=== PATIENT | male | born 2000 | race Caucasian/White ===

== ENCOUNTER 2022-06-12 18:50 | Emergency (ER) | payer BC, SELFPAY ==
[2022-06-12 18:51] VITALS: PULSE 74
[2022-06-12 18:56] VITALS: BP 118/72; PULSE 72; RESP 18; TEMP 36.7; O2SAT 99; BMI 22.4
--- NOTE | 2022-06-12 19:34 | CRLHL7_ITS ---
For Patients: As a result of the Century Cures Act, medical imaging exams and procedure reports are released immediately into your electronic medical record. You may view this report before your referring provider. If you have questions, please contact your health care provider. Indication: Injury and pain. Technique: Left knee 3 views Comparison: None Findings: Bones: Alignment is normal. No acute displaced fracture. Sclerotic focus overlying the medial tibial plateau with narrow zone of transition, statistically a bone island. Joint spaces: No joint effusion. Joint spaces are well maintained. No degenerative changes. Soft tissues: Unremarkable. Impression: No sign of acute injury. Dictated by Del Gu MD @ 06/12/2022 7:59:17 PM (Electronically Signed)
--- NOTE | 2022-06-12 19:34 | ED.LOWEXIN ---
HPI - Extremity Injury (Lower) General Chief Complaint: Extremity Pain/Injury, Lower Stated Complaint: [place] the top of his knee slide to the bottom Time Seen by Provider: 06/12/22 19:03 History of Present Illness HPI Narrative: This 21-year-old male comes in with an injury to his left knee that occurred about 45 minutes prior to arrival. He states that he was running straight forward when he felt like his knee buckled or went down. Since then he has not put any weight on his leg. He arrives here with no sign of deformity in his knee. He is reporting pain in the posterior aspect of his left knee. He does not report any other injury and has not had a problem with his knees in the past. Related Data Home Medications Medication Instructions Recorded Confirmed No Known Home Medications 06/12/22 06/12/22 Previous Rx's Medication Instructions Recorded Crutches- Adult #1 ea 06/12/22 ketorolac 10 mg tablet 10 mg PO Q8H 5 days #15 tabs 06/12/22 Allergies Allergy/AdvReac Type Severity Reaction Status Date / Time amoxicillin Allergy Mild Hives Verified 06/12/22 18:59 Review of Systems Status of ROS: Reports: 10 or more systems reviewed and unremarkable except as noted in History and below Narrative: Constitutional: No fevers, no weight gain or loss. Eyes: No discharge. No vision changes. HENT: No congestion, no sore throat, no ear pain. Cardiovascular: No chest pain, no palpitations. Respiratory: No shortness of breath, no wheezes, no cough. Gastrointestinal: No abdominal pain, no vomiting, no diarrhea. Genitourinary: No dysuria, no hematuria. Musculoskeletal: Left knee pain as described above. Skin: No rashes, no pruritis. Neurological: No dizziness, weakness, sensory change, speech change. Endo/Heme/Allergies: No bruising or bleeding. No polydipsia. Pysch: no suicidality, no anxiety, no insomnia. All other systems reviewed and are negative. PFS PFS Medical History (Updated 06/12/22 @ 19:53 by Rufus Marte MD) Anxiety ?F41.9 - Anxiety disorder, unspecified (ICD-10) Surgical History (Updated 06/12/22 @ 19:15 by Alejandro Tran RN) No significant past surgical history Social History Smoking Status: Never smoker Do you use any of these nicotine containing products: Vaping Products Second hand tobacco smoke exposure: No How often do you have a drink containing alcohol: never How often do you have six or more drinks on one occasion: Never AUDIT-C Alcohol total score: 0 Non-prescribed substance use: denies use Exam Narrative: Exam Narrative: Constitutional: Well-developed, well-nourished, no acute distress. HEENT: Normocephalic, atraumatic. Neck: Normal range of motion. Nontender. Supple. Heart: Intact distal pulses. Lungs: No chest discomfort. No wheezes, rhonchi, or rales. Abdomen: Nontender. Back: Normal range of motion. Extremities: Left knee has normal appearance without sign of deformity or swelling. There is no pain when mobilizing the patella in a fully extended relaxed position. He does have pain when flexing his leg and rotating his ankle. The pain is in his flexor mechanism tendons of the hamstring. There is no palpable step-off of these tendons. There is no sign of bruising. Jose's test is negative. There is no ligament instability when assessing under varus and valgus stress. Skin: Intact. No rash. Warm. No erythema or pallor. Neurologic: No altered sensation. No weakness. Alert and oriented. Psychiatric: No suicidality. No anxiety or depression. No insomnia. Nursing notes and vitals signs are reviewed. Const: Vital Signs, click to edit/add: Vital Signs - 24 hr 06/12/22 18:56 06/12/22 18:51 Temperature 98.0 F Pulse Rate [Left D orsalis Pedis] 74 Pulse Rate [Right Pulse Oximeter] 72 Respiratory Rate 18 Blood Pressure [Ri ght Upper Arm] 118/72 Pulse Oximetry 99 Oxygen Delivery Me thod Room Air Course Vital Signs Vital signs: Initial Vital Signs Pulse Rate 74 06/12/22 18:51 Vital Signs Pulse Rate 74 06/12/22 18:51 Temperature 98.0 F 06/12/22 18:56 Pulse Rate 72 06/12/22 18:56 Respiratory Rate 18 06/12/22 18:56 Blood Pressure 118/72 06/12/22 18:56 Pulse Oximetry 99 06/12/22 18:56 Oxygen Delivery Method Room Air 06/12/22 18:56 MDM - Extremity Injury (Lower) MDM Narrative Medical decision making narrative: This patient comes in with an injury event to his left knee. He reports pain in the tendons of his flexor mechanism of the hamstring. There is no palpable step-off but when squeezing his hamstring musculature that this reproduces the pain for him. X-ray imaging is acquired and shows no acute pathology. The patient did receive crutches for ambulating and a prescription for Toradol. I recommended that he follow-up with orthopedic clinic for further evaluation and treatment. Imaging Data XR L knee: Radiologist's impression: No sign of acute injury. Discharge Plan Discharge Clinical Impression: Injury of knee, left Patient Disposition: Home, Self-Care Condition: Unchanged Additional Instructions: Use crutches as needed. Take medication as needed and indicated. Follow up with orthopedic clinic. Prescriptions: New (DME) Crutches- Adult Misc See Rx Instructions .ROUTE .MEDSUPPLY Qty: 1 0RF Rx Instructions: As directed ketorolac 10 mg tablet 10 mg PO Q8H 5 Days Qty: 15 0RF No Action No Known Home Medications Follow Up/Referrals: Provider,Not a Local [Primary Care Provider] - Stand Alone Forms: [employer] Info Instructions
== END 2022-06-12 20:26 | disposition home or self-care (01) ==
PROVIDERS: Emergency Provider Emergency Medicine Emergency Medical Services
DX: S89.92XA Unspecified injury of left lower leg, initial encounter (principal); Y93.02 Activity, running
CPT/HCPCS: 73562; 99283; 99284

== ENCOUNTER 2022-07-03 08:00 | Outpatient (RCR) | payer BC, SELFPAY | END 2022-10-31 23:59 | disposition home or self-care (01) | PROVIDERS: Visit Provider Physician Assistant Surgical | DX: S83.519A Sprain of anterior cruciate ligament of unspecified knee, initial encounter (principal); S83.242A Other tear of medial meniscus, current injury, left knee, initial encounter; Z51.89 Encounter for other specified aftercare | CPT/HCPCS: 97110; 97162 ==